=== PATIENT | male | born 1950 | race Caucasian/White ===

== ENCOUNTER 2019-06-10 22:55 | Emergency (ER) | payer MEDICARE, OTHER ==
[2019-06-10] MEDS ORDERED: Aspirin 81 MG Tab.Chew PO ONE (23:03)
[2019-06-10] MEDS ORDERED: Nitroglycerin 0.4 MG Tab.SL SL ONE (23:03)
--- NOTE | 2019-06-10 23:08 | EDM.PDOC ---
ED HPI GENERAL MEDICAL PROBLEM - General Chief Complaint: Chest Pain Stated Complaint: CHEST PAINS Time Seen by Provider: 06/10/19 23:00 Source of Information: Reports: Patient History Limitations: Reports: No Limitations - History of Present Illness INITIAL COMMENTS - FREE TEXT/NARRATIVE: 68-year-old male with previous stents 4 years ago presents with several episodes of chest pain today. He had 2 episodes while raking out in the yard today, they resolved with rest and 5 minutes. Another episode tonight while at rest with pain relating to his left shoulder and some tingling in his left arm with slight shortness of breath. No nausea or vomiting. He has not had aspirin and he does not have nitroglycerin at home. He still having some discomfort. Onset: Sudden Location: Reports: Chest Quality: Reports: Burning, Pressure Improves with: Reports: Rest (First episodes of pain seemed to improve with rest ) Associated Symptoms: Reports: Chest Pain, Shortness of Breath. Denies: Diaphoresis, Malaise, Nausea/Vomiting Chest Pain Score (Numeric/FACES): 6 - Related Data Allergies Allergy/AdvReac Type Severity Reaction Status Date / Time No Known Allergies Allergy Verified 06/10/19 23:05 ED ROS GENERAL - Review of Systems Review Of Systems: See Below Constitutional: Denies: Fever, Chills HEENT: Reports: No Symptoms Respiratory: Reports: Shortness of Breath. Denies: Cough Cardiovascular: Reports: Chest Pain. Denies: Palpitations Endocrine: Denies: Fatigue GI/Abdominal: Denies: Abdominal Pain, Nausea, Vomiting : Reports: No Symptoms Skin: Reports: No Symptoms Neurological: Reports: Paresthesia (Numbness sensation into his left arm) ED EXAM, GENERAL - Physical Exam Exam: See Below Exam Limited By: No Limitations General Appearance: Alert, No Apparent Distress Eye Exam: Bilateral Eye: Normal Inspection Head: Atraumatic Respiratory/Chest: No Respiratory Distress, Lungs Clear Cardiovascular: Regular Rate, Rhythm, No Murmur. No: Extra Beats GI/Abdominal: Soft, Non-Tender Extremities: Normal Inspection Neurological: Alert, Oriented Psychiatric: Normal Affect, Normal Mood Skin Exam: Warm, Dry EKG INTERPRETATION Rhythm: NSR EKG Interpretation Comments: No prior EKGs to compare, patient has a right bundle lavern block and a conduction abnormality making it difficult to assess ST segment. Course - Vital Signs Last Recorded V/S: Last Vital Signs Temp 98.1 F 06/10/19 23:26 Pulse 76 06/11/19 00:31 Resp 18 06/11/19 00:31 BP 139/73 06/11/19 00:31 Pulse Ox 93 L 06/11/19 00:31 - Orders/Labs/Meds Orders: Active Orders 24 hr Category Date Time Status EKG Documentation Completion [RC] ASDIRECTED Care 06/10/19 23:03 Active EKG 12 Lead [EK] Routine Ther 06/10/19 23:03 Ordered Labs: Laboratory Tests 06/10/19 06/10/19 Range/Units 23:10 23:10 WBC 7.8 (4.5-11.0) K/uL RBC 4.33 (4.30-5.90) M/uL Hgb 13.3 (12.0-15.0) g/dL Hct 41.2 (40.0-54.0) % MCV 95 (80-98) fL MCH 31 (27-31) pg MCHC 32 (32-36) % Plt Count 190 (150-400) K/uL Neut % (Auto) 70 H (36-66) % Lymph % (Auto) 20 L (24-44) % [place] % (Auto) 9 H (2-6) % Eos % (Auto) 2 (2-4) % Baso % (Auto) 1 (0-1) % Sodium 142 (140-148) mmol/L Potassium 4.0 (3.6-5.2) mmol/L Chloride 106 (100-108) mmol/L Carbon Dioxide 24 (21-32) mmol/L Anion Gap 11.7 (5.0-14.0) mmol/L BUN 42 H (7-18) mg/dL Creatinine 2.2 H (0.8-1.3) mg/dL Est Cr Clr Drug Dosing 36.33 mL/min Estimated GFR (MDRD) 30 L (>60) Glucose 178 H (74-106) mg/dL Calcium 9.0 (8.5-10.1) mg/dL Total Bilirubin 0.2 (0.2-1.0) mg/dL AST 27 (15-37) U/L ALT 26 (12-78) U/L Alkaline Phosphatase 103 (46-116) U/L Troponin I 0.648 H* (0.000-0.056) ng/mL Total Protein 7.4 (6.4-8.2) g/dL Albumin 3.2 L (3.4-5.0) g/dL Globulin 4.2 H (2.3-3.5) g/dL Albumin/Globulin Ratio 0.8 L (1.2-2.2) Meds: Medications Discontinued Medications Generic Name Dose Route Start Last Admin Trade Name Freq PRN Reason Stop Dose Admin Aspirin 324 mg 06/10/19 23:03 06/10/19 23:09 Aspirin PO 06/10/19 23:04 324 mg ONETIME ONE Administration Heparin Sodium (Porcine) Confirm 06/10/19 23:59 06/11/19 00:07 Heparin Sodium Administered 06/11/19 00:00 Not Given Dose 5,000 units .ROUTE .STK-MED ONE Heparin Sodium (Porcine) 5,000 units 06/10/19 23:45 06/11/19 00:04 Heparin Sodium IVPUSH 06/10/19 23:46 5,000 units ONETIME ONE Administration Nitroglycerin/Dextrose 25 mg in 250 mls @ 6 mls/hr 06/10/19 23:30 06/10/19 23 :35 Nitroglycerin 25 Mg/D5w 250 Ml IV 10 mcg/min TITRATE NHUNG 6 mls/hr Administration Protocol 10 MCG/MIN Heparin Sodium/Dextrose Confirm 06/10/19 23:59 06/11/19 00:07 Heparin 25,000 Units In D5w 500 Ml Administered 06/11/19 00:00 Not Given Dose 500 mls @ as directed .ROUTE .STK-MED ONE Heparin Sodium/Dextrose 25,000 units in 500 mls @ 20 mls/hr 06/11/19 00:15 00:27 Heparin 25,000 Units In D5w 500 Ml IV 1,000 units/hr TITRATE NHUNG 20 mls/hr Administration Protocol 1,000 UNITS/HR Nitroglycerin 0.4 mg 06/10/19 23:03 06/10/19 23:09 Nitrostat SL 06/10/19 23:04 0.4 mg ONETIME ONE Administration - Re-Assessments/Exams Free Text/Narrative Re-Assessment/Exam: 06/10/19 23:08 Initial EKG because of the right bundle block and conduction delay makes it difficult to assess the ST segment. Patient was given 324 mg of chewable aspirin and one 0.4 mg sublingual nitroglycerin. 06/11/19 00:15 Patient had partial relief with the 0.4 mg sublingual nitroglycerin but then the pain returned. He was and started on a nitroglycerin drip which resolved his pain. Cardiology was consulted in [place] because of the symptoms of VA or acute coronary syndrome, along with the bundle branch block on his EKG. They were able to find a previous EKG which was similar, however his troponin returned 0.684. Heparin was started with a 5000 unit bolus, 1000 unit per hour drip and arrangements by ground to [facility] were established. Departure - Departure Time of Disposition: 02:43 Disposition: DC/Tfer to Acute Hospital 02 Clinical Impression: Acute myocardial infarction Qualifiers: Myocardial infarction type: non-ST elevation myocardial infarction Qualified Code(s): I21.4 - Non-ST elevation (NSTEMI) myocardial infarction - Discharge Information Referrals: Iker Ocasio MD [Primary Care Provider] - Forms: ED Department Discharge Care Plan Goals: Patient is to be transported to [facility] in [place] for cardiology evaluation and further care for acute VA. - My Orders Last 24 Hours: My Active Orders 06/10/19 23:03 EKG Documentation Completion [RC] ASDIRECTED EKG 12 Lead [EK] Routine - Assessment/Plan Last 24 Hours: My Active Orders 06/10/19 23:03 EKG Documentation Completion [RC] ASDIRECTED EKG 12 Lead [EK] Routine
[2019-06-10] MEDS ORDERED: Nitroglycerin/D5W 25 MG/250 ML BOTTLE IV SCH (23:30)
[2019-06-10] MEDS ORDERED: Heparin Sodium 5,000 Units/ML Vial IVPUSH ONE (23:45)
[2019-06-10] MEDS ORDERED: Heparin Sodium 5,000 Units/ML Vial ONE (23:59)
[2019-06-10] MEDS ORDERED: Heparin Sodium/D5W 500 ML ONE (23:59)
[2019-06-11] MEDS ORDERED: Heparin Sodium/D5W 25,000 UNITS/500 ML BAG IV SCH (00:15)
== END 2019-06-11 01:30 ==
LOC: JP.ED 22:55
DX: I21.4 Non-ST elevation (NSTEMI) myocardial infarction (principal)
CPT/HCPCS: 36415; 80053; 84484; 85025; 93005; 96365; 96366; 96368; 96376; 99285; A9270; J1644; J3490; 93010

== ENCOUNTER 2022-05-12 06:15 | Emergency (ER) | payer MEDICARE, OTHER | END 2022-05-12 07:41 | disposition home or self-care (01) | LOC: JP.ED 06:15 | DX: S01.01XA Laceration without foreign body of scalp, initial encounter (principal); I25.2 Old myocardial infarction; E11.22 Type 2 diabetes mellitus with diabetic chronic kidney disease; N18.6 End stage renal disease; E66.9 Obesity, unspecified; Z68.31 Body mass index [BMI] 31.0-31.9, adult; Z79.82 Long term (current) use of aspirin; Z79.4 Long term (current) use of insulin; W01.198A Fall on same level from slipping, tripping and stumbling with subsequent striking against other object, initial encounter; Y92.002 Bathroom of unspecified non-institutional (private) residence as the place of occurrence of the external cause | CPT/HCPCS: 12002; 12013; 36415; 70450; 80048; 85025; 85610; 85730; 99281; 99284-25 ==